=== PATIENT | male | born 1945 | race Caucasian/White ===

== ENCOUNTER → 2016-09-08 | Outpatient (CLI) | payer MEDICARE ==
--- NOTE | 2016-09-08 11:08 | PCVCIMAG ---
APPROVED REPORT Study performed: 09/08/2016 09:55:31 EXAM: Comprehensive 2D, Doppler, and color-flow Echocardiogram Indications ICD: Dyspnea CAD Cardiomyopathy Hypertension/HDD 2D Dimensions IVSd: 13.43 (7-11mm) LVDd: 42.69 mm PWd: 11.71 (7-11mm) LVDs: 30.67 (25-40mm) Left Atrium: 40.67 (27-40mm) Aortic Root: 34.86 mm LV Single Plane 4CH: 51.60 % LV Single Plane 2CH: 31.40 %Shine's LVEF: 41.50 % Biplane EF: 42.8 % Volumes Left Atrial Volume (Systole) Single Plane 4CH: 75.77 mLSingle Plane 2CH: 74.28 mL LA ESV Index: 31.00 mL/m2 Aortic Valve AoV Peak Tab.: 1.06 m/s AO Peak Gr.: 4.47 mmHgLVOT Max P.24 mmHg LVOT Max V: 0.75 m/s Mitral Valve E/A Ratio: 0.6 MV Decel. Time: 334.46 ms MV E Max Tab.: 0.53 m/s MV A Tab.: 0.85 m/s IVRT: 145.33 ms TDI E/Lateral E': 9.00E/Medial E': 12.00 Pulmonary Valve PV Peak Tab.: 1.07 m/sPV Peak Gr.: 4.56 mmHg Pulmonary Vein P Vein S: 0.31 m/sP Vein A: 0.27 m/s P Vein D: 0.40 m/sP Vein A Dur.: 138.4 msec P Vein S/D Ratio: 0.77 Tricuspid Valve TR Peak Tab.: 2.17 m/s TR Peak Gr.: 18.81 mmHg Left Ventricle The left ventricle is normal size. There is mild hypokinesis in the basal inferior wall. Mild concentric left ventricular hypertrophy. The left ventricular systolic function is normal. LVEF is 50-55%. Grade I - abnormal relaxation pattern. Right Ventricle The right ventricle is normal size. The right ventricular systolic function is normal. Pacemaker lead is present in the right ventricle. Atria The left atrium size is mildly dilated The right atrium size is mildly dialted. Pacemaker lead is present in the right atrium. Aortic Valve The aortic valve is normal in structure. No aortic regurgitation is present. There is no aortic valvular stenosis. Mitral Valve The mitral valve is normal in structure. There is no mitral valve regurgitation noted. No evidence of mitral valve stenosis. Tricuspid Valve The tricuspid valve is normal in structure. Trace tricuspid regurgitation with PAP of 26 mmHg. Pulmonic Valve The pulmonary valve is normal in structure. There is no pulmonic valvular regurgitation. Great Vessels The aortic root is normal in size. IVC is normal in size and collapses with >50% inspiration Pericardium There is no pericardial effusion. <Conclusion> The left ventricle is normal size. Mild concentric left ventricular hypertrophy. The left ventricular systolic function is normal. Grade I - abnormal relaxation pattern. The right ventricle is normal size. The left atrium size is mildly dilated The aortic valve is normal in structure. The mitral valve is normal in structure. Trace tricuspid regurgitation with PAP of 26 mmHg.
== END | disposition home or self-care (01) ==
LOC: PCVCIMAG 09:59
PROVIDERS: ATTEND Internal Medicine Cardiovascular Disease
DX: I25.10 Atherosclerotic heart disease of native coronary artery without angina pectoris (principal); I10 Essential (primary) hypertension; I48.92 Unspecified atrial flutter; E78.00 Pure hypercholesterolemia, unspecified; E11.9 Type 2 diabetes mellitus without complications; I42.9 Cardiomyopathy, unspecified; Z88.0 Allergy status to penicillin; Z79.82 Long term (current) use of aspirin; Z79.84 Long term (current) use of oral hypoglycemic drugs; Z95.1 Presence of aortocoronary bypass graft; Z87.891 Personal history of nicotine dependence
CPT/HCPCS: 36415; 93005; 93306; G0463

== ENCOUNTER → 2017-07-07 | Outpatient (CLI) | payer MEDICARE | END | disposition home or self-care (01) | LOC: PCVCCLINIC 15:23 | DX: I25.10 Atherosclerotic heart disease of native coronary artery without angina pectoris (principal); I47.2 Ventricular tachycardia; I10 Essential (primary) hypertension; E78.00 Pure hypercholesterolemia, unspecified; M79.604 Pain in right leg; M79.605 Pain in left leg; Z88.0 Allergy status to penicillin; Z79.899 Other long term (current) drug therapy; Z79.84 Long term (current) use of oral hypoglycemic drugs; Z79.82 Long term (current) use of aspirin; Z87.891 Personal history of nicotine dependence | CPT/HCPCS: G0463 ==

== ENCOUNTER → 2017-07-13 | Outpatient (CLI) | payer MEDICARE | END | disposition home or self-care (01) | LOC: PCVCIMAG 11:19 | DX: I73.9 Peripheral vascular disease, unspecified (principal) | CPT/HCPCS: 93925 ==

== ENCOUNTER → 2018-01-11 | Outpatient (CLI) | payer MEDICARE | END | disposition home or self-care (01) | LOC: PCVCCLINIC 11:50 | PROVIDERS: ATTEND Internal Medicine Cardiovascular Disease | DX: I25.10 Atherosclerotic heart disease of native coronary artery without angina pectoris (principal); I47.2 Ventricular tachycardia; I10 Essential (primary) hypertension; E78.00 Pure hypercholesterolemia, unspecified; Z88.0 Allergy status to penicillin; Z79.82 Long term (current) use of aspirin; Z79.84 Long term (current) use of oral hypoglycemic drugs; Z79.899 Other long term (current) drug therapy; Z87.891 Personal history of nicotine dependence | CPT/HCPCS: 36415; 93005; G0463 ==

== ENCOUNTER → 2018-07-12 | Outpatient (CLI) | payer MEDICARE ==
--- NOTE | 2018-07-12 10:57 | PCVCIMAG ---
APPROVED REPORT Study performed: 07/12/2018 10:07:02 EXAM: Comprehensive 2D, Doppler, and color-flow Echocardiogram Patient Location: Echo lab Status: routine BSA: 2.49 HR: 60 bpmBP: 120/60 mmHg Rhythm: NSR Other Information Study Quality: Technically Difficult Risk Factors: Cardiac Risk Factors: HTN, Hyperlipidemia Indications CAD Hypertension/HDD Ventricular tachycardia, AICD, CABG 2D Dimensions IVSd: 12.89 (7-11mm)LVOT Diam: 24.09 (18-24mm) LVDd: 52.50 mm PWd: 11.76 (7-11mm)Ascending Ao: 36.78 (22-36mm) LVDs: 37.13 (25-40mm) Left Atrium: 40.52 (27-40mm) Aortic Root: 31.86 mm LV Single Plane 4CH: 41.79 % Volumes Left Atrial Volume (Systole) Single Plane 4CH: 36.54 mLSingle Plane 2CH: 46.03 mL LA ESV Index: 17.00 mL/m2 Aortic Valve AoV Peak Tab.: 1.27 m/s AO Peak Gr.: 6.47 mmHgLVOT Max P.88 mmHg LVOT Max V: 0.68 m/s SHAREE Vmax: 2.45 cm2 Mitral Valve E/A Ratio: 0.7 MV Decel. Time: 314.88 ms MV E Max Tab.: 0.47 m/s MV A Tab.: 0.69 m/s IVRT: 176.47 ms TDI E/Lateral E': 5.22E/Medial E': 9.40 Medial E' Tab.: 0.05 m/s Lateral E' Tab.: 0.09 m/s Pulmonary Valve PV Peak Gr.: 2.00 mmHg Pulmonary Vein P Vein S: 0.43 m/sP Vein A: 0.26 m/s P Vein D: 0.37 m/sP Vein A Dur.: 79.6 msec P Vein S/D Ratio: 1.16 Left Ventricle The left ventricle is normal size. There is normal LV segmental wall motion. There is normal left ventricular wall thickness. Left ventricular systolic function is normal. The left ventricular ejection fraction is within the normal range. LVEF is 50%. Right Ventricle The right ventricle is normal size. The right ventricular systolic function is normal. Device lead is present in the right ventricle. Atria The left atrium size is normal. Pacemaker lead is present in the right atrium. Aortic Valve The aortic valve is normal in structure. No aortic regurgitation is present. There is no aortic valvular stenosis. Mitral Valve The mitral valve is normal in structure. There is no mitral valve regurgitation noted. No evidence of mitral valve stenosis. Tricuspid Valve The tricuspid valve is normal in structure. There is no tricuspid valve regurgitation noted. Pulmonic Valve The pulmonary valve is normal in structure. There is no pulmonic valvular regurgitation. Great Vessels The aortic root is normal in size. IVC is normal in size and collapses >50% with inspiration. Pericardium There is no pericardial effusion. <Conclusion> The left ventricle is normal size. There is normal left ventricular wall thickness. Left ventricular systolic function is normal. The right ventricle is normal size. Device lead is present in the right ventricle. The left atrium size is normal. Pacemaker lead is present in the right atrium. The aortic valve is normal in structure. There is no mitral valve regurgitation noted. There is no tricuspid valve regurgitation noted.
== END | disposition home or self-care (01) ==
LOC: PCVCIMAG 08:00
PROVIDERS: ATTEND Internal Medicine Cardiovascular Disease
DX: I48.91 Unspecified atrial fibrillation (principal); I25.10 Atherosclerotic heart disease of native coronary artery without angina pectoris; I47.2 Ventricular tachycardia; I10 Essential (primary) hypertension; Z88.0 Allergy status to penicillin; Z79.82 Long term (current) use of aspirin
CPT/HCPCS: 93005; 93306; G0463

== ENCOUNTER → 2021-06-02 | Outpatient (CLI) | payer MEDICARE ==
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
== END ==
LOC: KCIC 10:01
PROVIDERS: ATTEND Family Medicine
DX: M19.211 Secondary osteoarthritis, right shoulder (principal)
CPT/HCPCS: 73030